=== PATIENT | male | born 1995 | race African-American/Black ===

== ENCOUNTER 2023-09-28 23:01 | Emergency (ER) | payer OTHER ==
[~2023-09-28] VITALS: Ht 185.4 cm; Wt 84.8 kg
[2023-09-28 23:09] VITALS: BP 97/64; PULSE 78; RESP 16; TEMP 97.4; O2SAT 16
== END 2023-09-28 23:19 | disposition left against medical advice (07) ==
LOC: MED 23:01
DX: R07.9 Chest pain, unspecified (principal); Z53.21 Procedure and treatment not carried out due to patient leaving prior to being seen by health care provider